=== PATIENT | male | born 1940 | race Caucasian/White ===

== ENCOUNTER → 2018-07-08 08:18 | Outpatient (CLI) | payer MEDICARE, OTHER, SELFPAY ==
[2018-07-08 10:07] LABS: Add Manual Diff / Slide Review NO; Basophils Percent Auto 0.5 % (0-2); Hematocrit 42.3 % (41-53); Hemoglobin 14.6 g/dL (13.5-17.5); Mean Corpuscular HGB Conc 34.5 % (30-36); Mean Corpuscular Hemoglobin 32.9 PG (26-34); Mean Corpuscular Volume 95.2 fL (80-100); Monocytes Percent Auto 9.5 % (3-14); Neutrophils Absolute Auto 2800 /uL (1500-7000); Platelet Count 299 X10^3/uL (150-400); Red Blood Cell Count 4.45 X10^6/uL (4.5-5.9); White Blood Cell Count 8.3 X10^3/uL (4.5-11.0)
[2018-07-08 10:10] LABS: Alanine Aminotransferase 30 IU/L (21-72); Albumin 4.5 g/dL (3.5-5.0); Albumin Globulin Ratio 1.3 (1.0-2.8); Alkaline Phosphatase 54 U/L (38-126); Aspartate Aminotransferase 35 IU/L (17-59); Bilirubin Total 0.4 mg/dL (0.2-1.3); Blood Urea Nitrogen 20 mg/dL (9-20); Calcium 9.4 mg/dL (8.4-10.2); Carbon Dioxide 26 mmol/L (22-32); Chloride 104 mmol/L (98-107); Cholesterol 147 mg/dL (140-199); Estimated Glomerular Filt Rate > 60.0 mL/min (>60); Globulin 3.5 g/dL (1.7-4.1); Glucose 99 mg/dL (80-110); HDL Cholesterol 42 mg/dL (40-60); HEMOLYSIS < 15 (0-50); LDL Cholesterol Calculated 90 mg/dL (<100); Lipase 99 U/L (23-300); Potassium 4.3 mmol/L (3.4-5.1); Sodium 142 mmol/L (137-145); Triglycerides 77 mg/dL (35-150)
[2018-07-08 10:38] LABS: TSH w/ Reflex to FT4 2.03 uIU/mL (0.47-4.68)
== END ==
PROVIDERS: PCP Internal Medicine; Visit Provider Internal Medicine
DX: E78.2 Mixed hyperlipidemia (principal); I10 Essential (primary) hypertension; I25.10 Atherosclerotic heart disease of native coronary artery without angina pectoris
CPT/HCPCS: 36415; 80053; 80061; 83690; 84443; 85025

== ENCOUNTER → 2018-12-03 09:50 | Outpatient (CLI) | payer MEDICARE, OTHER, SELFPAY | PROVIDERS: PCP Internal Medicine; Visit Provider Nurse Practitioner | DX: T14.8XXA Other injury of unspecified body region, initial encounter (principal); B00.1 Herpesviral vesicular dermatitis | CPT/HCPCS: 87070; 87205 ==

== ENCOUNTER 2019-07-31 21:18 | Emergency (ER) | payer MEDICARE, OTHER, SELFPAY ==
[2019-07-31] VITALS (19 sets, daily range): BP systolic 75–188; BP diastolic 37–86; PULSE 65–86; RESP 14–25; TEMP 36.4; O2SAT 93–99; BMI 24.4
--- NOTE | 2019-07-31 21:29 | DI.RAD.S_ITS ---
PROCEDURE: XR CHEST 1V INDICATIONS: chest pain TECHNIQUE: One view of the chest was acquired. COMPARISON: [facility], , CHEST 1 VIEW, 08/05/2011, 0:51. FINDINGS: Surgical changes and devices: Median sternotomy. Lungs and pleura: Lungs are clear. No pleural effusions or pneumothorax. Mediastinum: Moderate hiatal hernia. Mediastinal contours otherwise appear normal. Heart size is normal. Bones and chest wall: No suspicious bony lesions. Overlying soft tissues appear unremarkable. IMPRESSION: 1. No acute process. 2. Hiatal hernia. Dictated by: Gabo Madrigal M.D. on 08/01/2019 at 7:22 Approved by: Gabo Madrigal M.D. on 08/01/2019 at 7:23
[2019-07-31] MEDS: NITROGLYCERIN 0.4 MG SL TAB SL ×3 (21:36→21:49)
[2019-07-31 21:45] LABS: PTT Partial Thromboplastin Tim 33 SECONDS (26.4-36.2)
[2019-07-31] MEDS: SODIUM CHLORIDE 0.9% 1,000 ML 150 ML IV (21:46)
[2019-07-31 21:47] LABS: Add Manual Diff / Slide Review NO; Alanine Aminotransferase 27 IU/L (<50); Albumin 4.9 g/dL (3.5-5.0); Albumin Globulin Ratio 1.3 (1.0-2.8); Alkaline Phosphatase 53 U/L (38-126); Aspartate Aminotransferase 39 IU/L (17-59); Basophils Absolute Auto 100 /uL (0-100); Basophils Percent Auto 0.4 % (0-2); Bilirubin Total 0.4 mg/dL (0.2-1.3); Blood Urea Nitrogen 21 mg/dL (9-20); Calcium 9.8 mg/dL (8.4-10.2); Carbon Dioxide 28 mmol/L (22-32); Chloride 101 mmol/L (98-107); Creatine Kinase 175 U/L (55-170); Eosinophils Absolute Auto 600 /uL (0-450); Estimated Glomerular Filt Rate 44.9 mL/min (>60); Globulin 3.7 g/dL (1.7-4.1); Glucose 119 mg/dL (80-110); HEMOLYSIS < 15 (0-50); Hematocrit 43.4 % (41-53); Lipase 142 U/L (23-300); Lymphocytes Absolute Auto 5800 /uL (1100-4500); Lymphocytes Percent Auto 45.9 % (25-40); Mean Corpuscular HGB Conc 34.6 % (30-36); Mean Corpuscular Hemoglobin 33.1 PG (26-34); Mean Corpuscular Volume 95.6 fL (80-100); Monocytes Absolute Auto 1400 /uL (0-900); Monocytes Percent Auto 10.7 % (3-14); Neutrophils Absolute Auto 4800 /uL (1500-7000); Platelet Count 293 X10^3/uL (150-400); Potassium 4.1 mmol/L (3.4-5.1); Red Blood Cell Count 4.54 X10^6/uL (4.5-5.9); Sodium 139 mmol/L (137-145); Total Protein 8.6 g/dL (6.3-8.2); White Blood Cell Count 12.7 X10^3/uL (4.5-11.0)
[2019-07-31 21:50] LABS: Prothrombin Time 12.1 SECONDS (10.1-12.7)
[2019-07-31 21:58] LABS: Troponin I < 0.012 ng/mL (0.01-0.034)
[2019-07-31 22:02] LABS: CKMB % Relative Index 2.2 % (1.5-5.0); Creatine Kinase MB 3.85 ng/mL (<2.37)
--- NOTE | 2019-07-31 22:05 | ED.CHESTPAIN ---
HPI - Chest Pain General Chief Complaint: Chest Pain Stated Complaint: Chest pain Time Seen by Provider: 07/31/19 21:31 Source: patient Mode of arrival: Ambulatory Limitations: no limitations History of Present Illness HPI narrative: 79-year-old gentleman with history of a 5 vessel CABG in 2003 presents with central chest pain that started approximately 730 after eating dinner today. With this central chest pain described as 4/10 and tight without radiation, he was initially mildly diaphoretic and dyspneic, he describes no nausea. Compounding the central chest pain that started at 7:30 this evening, is left shoulder pain with a slightly swollen and very tender left bursa that has been at problem for him for approximately a week and a half. He saw his primary care physician for this a couple of days ago who felt it was musculoskeletal and asked to return if it wasn't improving in a few days. The patient is very clear that there are 2 distinct types of chest pain the left shoulder musculoskeletal pain does radiate down into the left side of the chest wall but all of that pain is significantly different than the central chest pain that started after dinner today. Related Data Home Medications Medication Instructions Recorded Confirmed aspirin 325 mg PO QDAY #0 13 08/01/19 Previous Rx's Medication Instructions Recorded lisinopril 20 mg tablet 20 mg PO Q DAY #90 tabs 08/27/18 simvastatin 80 mg tablet 80 mg PO Q DAY #90 tabs 08/27/18 Allergies Allergy/AdvReac Type Severity Reaction Status Date / Time atorvastatin Allergy Mild MUSCLE Verified 07/30/19 11:07 WEAKNESS EXTREMITIES ezetimibe Allergy Mild MUSCLE Verified 07/30/19 11:07 ACHES procaine Allergy Mild SICK Verified 07/30/19 11:07 rosuvastatin Allergy Mild MUSLCE Verified 07/30/19 11:07 WEAKNESS IN EXTREMITIES Review of Systems Review of Systems Narrative: Denies ? fever ? cough ? cold ? chills ? chest pain ? dyspnea ? orthopnea ? wheezing ? abdominal pain ? change to bowel or bladder habits ? nausea vomiting ? skin changes ? rashes Patient History Medical History (Updated 08/01/19 @ 00:22 by Suly Alejo MD) Cataracts, bilateral (Resolved ~2010) Chicken pox (Resolved) Coronary artery disease (Chronic ~2003) Depression (Chronic ~2003) Essential hypertension (Chronic) Hearing deficit (Chronic) Measles (Resolved) Mixed hyperlipidemia (Chronic) Mumps (Resolved) Scarlet fever (Resolved) TGA (transient global amnesia) (Inactive ~2001) Transient ischemic attack (TIA) (Resolved ~07/2009) Vision disorder (Chronic) Surgical History Anesthesia (Resolved) History of cataract removal with insertion of prosthetic lens (~2010) Status post coronary artery bypass graft (~2003) Social History marital status: number of children: 5 household members: spouse lives independently: Yes caregiver/support person: No housing: house pets and animals: No education level: high school occupational status: other (Retired) Previous occupational history: [employer] e[employer]en/rastafarian: Spiritism travel history: other ([place], [place], [place]) leisure activities: reading and other (RV camping, coffee and eating doughnuts.) Smoking Status: Never smoker Tobacco: How many years used: 0 quit status: quit date established (Never Started) second hand exposure: Yes (In the past.) alcohol intake: never substance use type: does not use Smoking Status: Never smoker alcohol intake frequency: 0-2 drinks per day Substance Use Type: does not use Exam Narrative Exam Narrative: General: Pale, moderate distress distress. Able to give a complete and coherent history. Well-nourished well-developed HEENT: Moist mucous membranes, normal sclera with reactive pupils, Neck: No JVD, supple Respiratory: Lungs are clear to auscultation, no wheezing no rales no rhonchi. Full and symmetrical air movement Cardiac: Regular rate and rhythm no murmurs no bruits Abdomen: Soft nontender good bowel tones, no flank pain Skin: Warm and dry, no rashes Neurologic: Grossly neurologically intact with no obvious asymmetries or abnormalities Extremities: No trauma, well perfused. Left shoulder with fullness around the anterior deltoid bursa. He does have tenderness with active and passive range of motion at the shoulder that radiates down into his arm and into the left chest wall. This pain is not the same as the central chest pain for which he is presenting. There is no redness or warmth to the bursa Psych: Cooperative, appropriate insight and affect Initial Vital Signs Initial Vital Signs: Vital Signs Temperature 97.5 F L 07/31/19 21:26 Pulse Rate 75 07/31/19 21:26 Respiratory Rate 20 07/31/19 21:26 Blood Pressure 188/86 H 07/31/19 21: Pulse Oximetry 99 07/31/19 21:26 Course Course Course Narrative: 23:08: Presented with central chest pain that developed at around 7:30 a.m. this evening after eating dinner associated with mild nausea and diaphoresis. Began to radiate down his arm and exacerbate the pain that he is also experiencing in his left shoulder that clearly seems to be musculoskeletal. With 3 sublingual nitro his central chest pain had completely resolved and his left shoulder pain was down to what he felt the level of pain he has been having over the last week or 2 with this shoulder. Initial EKGs do not show ST elevation. Initial troponin is negative. Half an inch of nitropaste is placed and a cardiac heparin drip is started. At 2300 he is noticing that his central chest pain is clearly increasing/returning. Will change to a nitroglycerin drip and recheck another EKG. Repeat troponin will be drawn 23:45 Begining to look for beds. Call to [facility], waiting for return. Pain continues at 4/10, nitro gtt increasing. Morphine for pain control. Fluid bolus. Page to cardiology 00:[address] Cadena, he agrees that transfer to [facility] would be most appropriate 12:07 additional IV lines have been started pressure continues to fall is at 75/46 currently 1st L of fluid boluses continuing. Nitro drip has been discontinued. 12:15 blood pressure is Responding to fluids. Alert and appropriate. Nitro drip is currently completely discontinued and he states that this central chest pain is 1 to 2/10. Discussion with Dr. Nga Lares, hospitalist at [facility]. Except the patient to the ICU. Will arrange ALS transport. At this time initial troponin and repeat 2 hours later as well as 1st 3 EKGs still are not showing significant abnormalities. Orders Ordered: ED Orders 07/31/19 21:29 XR chest 1V Stat Complete Blood Count AUTO DIFF Stat Comprehensive Metabolic Panel Stat Lipase Stat Partial Thromboplastin Time Stat Prothrombin Time INR Stat Troponin & CK Cardiac Panel Stat 07/31/19 21:31 EKG-12 Lead Stat 07/31/19 21:46 EKG-12 Lead Routine 07/31/19 23:09 EKG-12 Lead Stat 07/31/19 23:30 Troponin I Stat Discontinued Medications Clopidogrel Bisulfate (Plavix) 300 mg PO NOW ONE Stop: 08/01/19 00:00 Last Admin: 08/01/19 00:33 Dose: 300 mg Documented by: PATIENCE Heparin Sodium (Porcine) (Heparin) 5,000 unit IV NOW ONE Stop: 07/31/19 22:49 Last Admin: 07/31/19 22:59 Dose: 5,000 unit Documented by: PATIENCE Sodium Chloride (Normal Saline 0.9%) 1,000 mls @ 150 mls/hr IV CONT LAURA Last Infusion: 08/01/19 01:14 Dose: 0 mls/hr Documented by: Infusion: 08/01/19 00:16 Dose: 999 mls/hr Documented by: Admin: 07/31/19 21:46 Dose: 150 mls/hr Documented by: PATIENCE Heparin Sodium/Dextrose (Heparin Drip) 25,000 unit in 500 mls @ 19.595 mls/hr IV CONT LAURA; Protocol Last Titration: 08/01/19 01:15 Dose: 12 units/kg/hr, 19.595 mls/hr Documented by: Admin: 07/31/19 23:00 Dose: 12 units/kg/hr, 19.595 mls/hr Documented by: PATIENCE Nitroglycerin (Nitroglycerin) 50 mg in 250 mls @ 1.5 mls/hr IV TITRATE LAURA; Protocol Last Titration: 08/01/19 00:02 Dose: 0 mcg/min, 0 mls/hr Documented by: Titration: 08/01/19 00:01 Dose: 5 mcg/min, 1.5 mls/hr Documented by: Titration: 07/31/19 23:58 Dose: 10 mcg/min, 3 mls/hr Documented by: Titration: 07/31/19 23:42 Dose: 15 mcg/min, 4.5 mls/hr Documented by: Titration: 07/31/19 23:33 Dose: 10 mcg/min, 3 mls/hr Documented by: Titration: 07/31/19 23:28 Dose: 50 mcg/min, 15 mls/hr Documented by: Titration: 07/31/19 23:21 Dose: 10 mcg/min, 3 mls/hr Documented by: Admin: 07/31/19 23:18 Dose: 5 mcg/min, 1.5 mls/hr Documented by: PATIENCE Sodium Chloride (Normal Saline 0.9%) 1,000 mls @ 1,000 mls/hr IV BOLUS ONE Stop: 08/01/19 01:20 Last Infusion: 08/01/19 01:15 Dose: 150 mls/hr Documented by: Admin: 08/01/19 00:00 Dose: 150 mls/hr Documented by: PATIENCE Metoprolol Tartrate (Lopressor) 5 mg IV Q5M LAURA Stop: 07/31/19 21:56 Last Admin: 07/31/19 21:58 Dose: Not Given Documented by: Admin: 07/31/19 21:58 Dose: Not Given Documented by: Admin: 07/31/19 21:58 Dose: Not Given Documented by: PATIENCE Morphine Sulfate (Morphine) 2 mg IV Q5MIN PRN PRN Reason: Chest Pain Last Admin: 07/31/19 23:48 Dose: 2 mg Documented by: PATIENCE Nitroglycerin (Nitrostat) 0.4 mg SL [id number] PRN PRN Reason: Chest Pain Last Admin: 07/31/19 21:49 Dose: 0.4 mg Documented by: Admin: 07/31/19 21:43 Dose: 0.4 mg Documented by: PATIENCE Nitroglycerin (Nitro-Bid) 0.5 inch TOP NOW ONE Stop: 07/31/19 22:07 Last Admin: 07/31/19 22:24 Dose: 0.5 inch Documented by: PATIENCE Vital Signs Vital signs: Vital Signs - 8 hr 07/31/19 22:24 07/31/19 22:58 07/31/19 23:05 Pulse Rate 73 69 70 Respiratory Rate 19 14 Blood Pressure 112/63 Blood Pressure [Left Arm] 109/55 L 108/58 L Pulse Oximetry 96 96 07/31/19 23:10 07/31/19 23:15 07/31/19 23:20 Pulse Rate 68 65 73 Respiratory Rate 21 18 17 Blood Pressure Blood Pressure [Left Arm] 116/58 L 121/61 122/72 Pulse Oximetry 96 96 97 07/31/19 23:25 07/31/19 23:30 07/31/19 23:35 Pulse Rate 72 75 80 Respiratory Rate 14 21 20 Blood Pressure Blood Pressure [Left Arm] 104/56 L 93/50 L 93/53 L Pulse Oximetry 95 95 95 07/31/19 23:39 07/31/19 23:40 07/31/19 23:50 Pulse Rate 80 75 76 Respiratory Rate 17 19 24 Blood Pressure Blood Pressure [Left Arm] 97/56 L 101/58 L 105/57 L Pulse Oximetry 95 93 94 07/31/19 23:55 07/31/19 23:58 08/01/19 00:03 Pulse Rate 75 74 63 Respiratory Rate 17 15 15 Blood Pressure Blood Pressure [Left Arm] 85/46 L 75/37 L 75/41 L Pulse Oximetry 95 96 95 08/01/19 00:10 08/01/19 00:12 08/01/19 00:15 Pulse Rate 62 60 69 Respiratory Rate 14 14 21 Blood Pressure Blood Pressure [Left Arm] 88/53 L 87/51 L 91/54 L Pulse Oximetry 94 96 96 08/01/19 00:17 08/01/19 00:20 08/01/19 00:25 Pulse Rate 66 69 69 Respiratory Rate 17 23 14 Blood Pressure Blood Pressure [Left Arm] 88/52 L 92/51 L 98/53 L Pulse Oximetry 94 96 96 08/01/19 00:27 08/01/19 00:32 08/01/19 00:34 Pulse Rate 68 70 72 Respiratory Rate 12 17 13 Blood Pressure Blood Pressure [Left Arm] 100/57 L 98/55 L 108/55 L Pulse Oximetry 94 95 96 08/01/19 00:37 08/01/19 00:40 08/01/19 00:43 Pulse Rate 74 77 75 Respiratory Rate 20 23 20 Blood Pressure Blood Pressure [Left Arm] 107/56 L 106/58 L 110/61 Pulse Oximetry 97 96 96 08/01/19 00:45 08/01/19 00:47 08/01/19 00:49 Pulse Rate 73 75 74 Respiratory Rate 24 24 18 Blood Pressure Blood Pressure [Left Arm] 109/58 L 115/57 L 115/56 L Pulse Oximetry 97 97 97 08/01/19 00:52 08/01/19 00:53 08/01/19 00:55 Pulse Rate 72 74 73 Respiratory Rate 21 18 14 Blood Pressure Blood Pressure [Left Arm] 107/55 L 116/57 L 104/50 L Pulse Oximetry 97 97 96 08/01/19 00:58 Pulse Rate 73 Respiratory Rate 16 Blood Pressure Blood Pressure [Left Arm] 106/55 L Pulse Oximetry 96 MDM - Chest Pain Medical Records Data Attestation: I reviewed the patient's medical records. Lab Data Attestation: I reviewed the patient's lab results. Result diagrams: 07/31/19 21:29 07/31/19 21:29 Labs: Lab Results 07/31/19 07/31/19 07/31/19 Range/Units 21:29 21:29 21:29 WBC 12.7 H (4.5-11.0) X10^3/uL RBC 4.54 (4.5-5.9) X10^6/uL Hgb 15.0 (13.5-17.5) g/dL Hct 43.4 (41-53) % MCV 95.6 (80-100) fL MCH 33.1 (26-34) PG MCHC 34.6 (30-36) % RDW 13.0 (11.6-14.8) % Plt Count 293 (150-400) X10^3/uL Neut % (Auto) 38.0 L (50-75) % Lymph % (Auto) 45.9 H (25-40) % Rich % (Auto) 10.7 (3-14) % Eos % (Auto) 5.0 H (2-4) % Baso % (Auto) 0.4 (0-2) % Neut # (Auto) 4800 (6077-5084) /uL Lymph # (Auto) 5800 H (3514-7423) /uL Rich # (Auto) 1400 H (0-900) /uL Eos # (Auto) 600 H (0-450) /uL Baso # (Auto) 100 (0-100) /uL PT 12.1 (10.1-12.7) SECONDS INR 1.0 (0.9-1.3) APTT 33 (26.4-36.2) SECONDS Sodium 139 (137-145) mmol/L Potassium 4.1 (3.4-5.1) mmol/L Chloride 101 (98-107) mmol/L Carbon Dioxide 28 (22-32) mmol/L BUN 21 H (9-20) mg/dL Creatinine 1.50 H (0.66-1.25) mg/dL Estimated GFR 44.9 L (>60) mL/min BUN/Creatinine Ratio 14.0 (6-22) Glucose 119 H (80-110) mg/dL Calcium 9.8 (8.4-10.2) mg/dL Total Bilirubin 0.4 (0.2-1.3) mg/dL AST 39 (17-59) IU/L ALT 27 (<50) IU/L Alkaline Phosphatase 53 (38-126) U/L Total Creatine Kinase 175 H (55-170) U/L CK-MB (CK-2) 3.85 H (<2.37) ng/mL CK-MB (CK-2) Rel Index 2.2 (1.5-5.0) % Troponin I < 0.012 (0.01-0.034) ng/mL Total Protein 8.6 H (6.3-8.2) g/dL Albumin 4.9 (3.5-5.0) g/dL Globulin 3.7 (1.7-4.1) g/dL Albumin/Globulin Ratio 1.3 (1.0-2.8) Lipase 142 (23-300) U/L 07/31/19 Range/Units 23:30 WBC (4.5-11.0) X10^3/uL RBC (4.5-5.9) X10^6/uL Hgb (13.5-17.5) g/dL Hct (41-53) % MCV (80-100) fL MCH (26-34) PG MCHC (30-36) % RDW (11.6-14.8) % Plt Count (150-400) X10^3/uL Neut % (Auto) (50-75) % Lymph % (Auto) (25-40) % Rich % (Auto) (3-14) % Eos % (Auto) (2-4) % Baso % (Auto) (0-2) % Neut # (Auto) (2454-9103) /uL Lymph # (Auto) (1351-1405) /uL Rich # (Auto) (0-900) /uL Eos # (Auto) (0-450) /uL Baso # (Auto) (0-100) /uL PT (10.1-12.7) SECONDS INR (0.9-1.3) APTT (26.4-36.2) SECONDS Sodium (137-145) mmol/L Potassium (3.4-5.1) mmol/L Chloride (98-107) mmol/L Carbon Dioxide (22-32) mmol/L BUN (9-20) mg/dL Creatinine (0.66-1.25) mg/dL Estimated GFR (>60) mL/min BUN/Creatinine Ratio (6-22) Glucose (80-110) mg/dL Calcium (8.4-10.2) mg/dL Total Bilirubin (0.2-1.3) mg/dL AST (17-59) IU/L ALT (<50) IU/L Alkaline Phosphatase (38-126) U/L Total Creatine Kinase (55-170) U/L CK-MB (CK-2) (<2.37) ng/mL CK-MB (CK-2) Rel Index (1.5-5.0) % Troponin I < 0.012 (0.01-0.034) ng/mL Total Protein (6.3-8.2) g/dL Albumin (3.5-5.0) g/dL Globulin (1.7-4.1) g/dL Albumin/Globulin Ratio (1.0-2.8) Lipase (23-300) U/L ECG Data Attestation: I personally reviewed and interpreted this ECG as follows: Interpretation: EKG 1 21:31 Sinus rhythm with foot rate of 75 Left axis deviation with an axis at -[address] depression in the for 5 and 6, no ST elevation EKG 2. At 9:46 p.m. Sinus rhythm at a rate of 89 Slight axis change to -18 ST depression laterally improved after nitrates No ST elevation EKG 3. 23:09 Sinus rhythm at a rate of [address] T-wave changes at this time. Normal axis Critical Care Time Critical Care Time Critical Care Time: Yes Total Critical Care Time: 41 Attestation: Critical care time is separate from other billable procedures. This critical care time includes consultation with family and other consulting doctors, review of records, and interpretation of data from labs, EKGs and imaging as well as managements of ongoing chest pain with hypotension Discharge Plan Departure Patient Disposition: [facility] Clinical Impression: ACS (acute coronary syndrome), Bursitis of left shoulder Discharge Date/Time: 08/01/19 01:15 Prescriptions: No Action aspirin 325 MG tablet 325 mg PO QDAY Qty: 0 RF: 0 simvastatin [Zocor] 80 mg tablet 80 mg PO Q DAY Qty: 90 RF: 3 lisinopril [Prinivil] 20 mg tablet 20 mg PO Q DAY Qty: 90 RF: 3 Referrals: Santos Aguilar MD [Primary Care Provider] -
[2019-07-31] MEDS: NITROGLYCERIN OINT 1 INCH/GM OINT...G. 0.5 INCH TOP (22:24)
[2019-07-31] MEDS: HEPARIN 5,000 UNIT/ML VIAL 5000 UNIT IV (22:59)
[2019-07-31] MEDS: HEPARIN DRIP 25,000 UNIT/500 ML IV.SOLN 19.595 UNIT IV (23:00)
[2019-07-31] MEDS: NITROGLYCERIN 50 MG/250 ML INFUS..BTL IV (23:18)
--- NOTE | 2019-07-31 23:47 | PC.NURSE ---
Pt reported severe left chest pain 8/10 as nitro gtt was being initiated. Pain decreased to 4/10 as nitro gtt took effect and SBP decresed to 90's. Dr Alejo notified, orders received for morphine. May also give 500ml NS bolus to keep SBP >90.
[2019-07-31] MEDS: MORPHINE 2 MG/ML INJ IV (23:48)
[2019-07-31 23:58] LABS: Troponin I < 0.012 ng/mL (0.01-0.034)
[2019-08-01] VITALS (20 sets, daily range): BP systolic 75–116; BP diastolic 41–61; PULSE 60–77; RESP 12–24; O2SAT 94–97
[2019-08-01] MEDS: SODIUM CHLORIDE 0.9% 1,000 ML 150 ML IV
[2019-08-01] MEDS: CLOPIDOGREL 75 MG TABLET 300 MG PO (00:33)
== END 2019-08-01 01:15 | disposition short-term general hospital (02) ==
PROVIDERS: Emergency Provider Emergency Medicine; PCP Internal Medicine
DX: I24.9 Acute ischemic heart disease, unspecified (principal); M75.52 Bursitis of left shoulder; R07.9 Chest pain, unspecified
CPT/HCPCS: 36415; 71045; 80053; 82550; 82553; 83690; 84484; 85025; 85610; 85730; 93005; 93010; 96361; 96365; 96366; 96368; 96375; 99285; 99291; 99292; J1644; J2270

== ENCOUNTER → 2019-08-05 07:16 | Outpatient (CLI) | payer MEDICARE, OTHER, SELFPAY ==
[2019-08-05 08:38] LABS: Alanine Aminotransferase 52 IU/L (<50); Albumin 4.5 g/dL (3.5-5.0); Albumin Globulin Ratio 1.5 (1.0-2.8); Alkaline Phosphatase 49 U/L (38-126); Aspartate Aminotransferase 58 IU/L (17-59); Bilirubin Total 0.5 mg/dL (0.2-1.3); Blood Urea Nitrogen 21 mg/dL (9-20); Calcium 9.7 mg/dL (8.4-10.2); Carbon Dioxide 27 mmol/L (22-32); Chloride 104 mmol/L (98-107); Cholesterol 144 mg/dL (140-199); Estimated Glomerular Filt Rate > 60.0 mL/min (>60); Globulin 3.1 g/dL (1.7-4.1); Glucose 105 mg/dL (80-110); HDL Cholesterol 41 mg/dL (40-60); HEMOLYSIS < 15 (0-50); LDL Cholesterol Calculated 85 mg/dL (<100); Potassium 4.9 mmol/L (3.4-5.1); Sodium 141 mmol/L (137-145); Total Protein 7.6 g/dL (6.3-8.2); Triglycerides 92 mg/dL (35-150)
[2019-08-05 09:08] LABS: Thyroid Stimulating Hormone 2.72 uIU/mL (0.47-4.68)
== END ==
PROVIDERS: PCP Internal Medicine; Referring Provider Internal Medicine Cardiovascular Disease; Visit Provider Internal Medicine Cardiovascular Disease
DX: E78.2 Mixed hyperlipidemia (principal); I10 Essential (primary) hypertension; I25.10 Atherosclerotic heart disease of native coronary artery without angina pectoris; E78.5 Hyperlipidemia, unspecified
CPT/HCPCS: 36415; 80053; 80061; 84443

== ENCOUNTER → 2020-08-02 07:02 | Outpatient (CLI) | payer MEDICARE, OTHER, SELFPAY ==
[2020-08-02 09:45] LABS: Cholesterol 149 mg/dL (140-199); HDL Cholesterol 36 mg/dL (40-60); LDL Cholesterol Calculated 93 mg/dL (<100); Triglycerides 101 mg/dL (35-150)
== END ==
PROVIDERS: PCP Internal Medicine; Referring Provider Internal Medicine Cardiovascular Disease; Visit Provider Internal Medicine Cardiovascular Disease
DX: E78.5 Hyperlipidemia, unspecified (principal)
CPT/HCPCS: 36415; 80061

== ENCOUNTER → 2020-09-08 13:03 | Outpatient (CLI) | payer MEDICARE, OTHER, SELFPAY ==
[2020-09-08] MEDS: COVID-19 VACC, Ad26(JANSSEN)/PF 0.5 ML IM (13:15)
== END ==
PROVIDERS: PCP Internal Medicine; Visit Provider Internal Medicine
DX: Z23 Encounter for immunization (principal)
CPT/HCPCS: 0031A; 91303

== ENCOUNTER → 2021-05-26 12:52 | Outpatient (CLI) | payer MEDICARE, OTHER, SELFPAY ==
[2021-05-26 13:16] LABS: COVID19 -Nasal RAPID POSITIVE (Negative)
== END ==
PROVIDERS: PCP Internal Medicine; Visit Provider Physician Assistant
DX: Z20.822 Contact with and (suspected) exposure to COVID-19 (principal)
CPT/HCPCS: 87635

== ENCOUNTER → 2021-08-22 07:25 | Outpatient (CLI) | payer MEDICARE, OTHER, SELFPAY ==
[2021-08-22 09:02] LABS: Alanine Aminotransferase 26 IU/L (<50); Albumin 4.6 g/dL (3.5-5.0); Albumin Globulin Ratio 1.4 (1.0-2.8); Alkaline Phosphatase 45 U/L (38-126); Aspartate Aminotransferase 37 IU/L (17-59); Bilirubin Total 0.7 mg/dL (0.2-1.3); Blood Urea Nitrogen 21 mg/dL (9-20); Calcium 9.5 mg/dL (8.4-10.2); Carbon Dioxide 30 mmol/L (22-32); Chloride 105 mmol/L (98-107); Cholesterol 159 mg/dL (140-199); Estimated Glomerular Filt Rate > 60.0 mL/min (>60); Globulin 3.3 g/dL (1.7-4.1); Glucose 111 mg/dL (80-110); HDL Cholesterol 35 mg/dL (40-60); HEMOLYSIS < 15 (0-50); LDL Cholesterol Calculated 104 mg/dL (<100); Potassium 4.7 mmol/L (3.4-5.1); Sodium 141 mmol/L (137-145); Total Protein 7.9 g/dL (6.3-8.2); Triglycerides 102 mg/dL (35-150)
== END ==
PROVIDERS: PCP Internal Medicine; Referring Provider Internal Medicine; Visit Provider Internal Medicine
DX: E78.2 Mixed hyperlipidemia (principal); I10 Essential (primary) hypertension; I25.10 Atherosclerotic heart disease of native coronary artery without angina pectoris
CPT/HCPCS: 36415; 80053; 80061

== ENCOUNTER → 2021-09-20 07:01 | Outpatient (CLI) | payer MEDICARE, OTHER, SELFPAY ==
[2021-09-20 08:03] LABS: Cholesterol 161 mg/dL (140-199); HDL Cholesterol 36 mg/dL (40-60); LDL Cholesterol Calculated 107 mg/dL (<100); Triglycerides 89 mg/dL (35-150)
== END ==
PROVIDERS: PCP Internal Medicine; Referring Provider Internal Medicine Cardiovascular Disease; Visit Provider Internal Medicine Cardiovascular Disease
DX: E78.5 Hyperlipidemia, unspecified (principal)
CPT/HCPCS: 36415; 80061

== ENCOUNTER → 2022-03-26 07:13 | Outpatient (CLI) | payer MEDICARE, OTHER, SELFPAY ==
[2022-03-26 08:29] LABS: Cholesterol 112 mg/dL (140-199); HDL Cholesterol 35 mg/dL (40-60); LDL Cholesterol Calculated 62 mg/dL (<100); Triglycerides 77 mg/dL (35-150)
== END ==
PROVIDERS: PCP Internal Medicine; Referring Provider Internal Medicine Cardiovascular Disease; Visit Provider Internal Medicine Cardiovascular Disease
DX: I10 Essential (primary) hypertension (principal); R94.39 Abnormal result of other cardiovascular function study; Z95.1 Presence of aortocoronary bypass graft; E78.5 Hyperlipidemia, unspecified
CPT/HCPCS: 36415; 80061

== ENCOUNTER → 2022-11-26 06:44 | Outpatient (CLI) | payer MEDICARE, OTHER, SELFPAY ==
[2022-11-26 09:18] LABS: Alanine Aminotransferase 30 IU/L (<50); Albumin 4.1 g/dL (3.5-5.0); Albumin Globulin Ratio 1.5 (1.0-2.8); Alkaline Phosphatase 46 U/L (38-126); Aspartate Aminotransferase 33 IU/L (17-59); BUN Creatinine Ratio 18.9 (6-22); Bilirubin Total 0.4 mg/dL (0.2-1.3); Blood Urea Nitrogen 18 mg/dL (9-20); Calcium 9.3 mg/dL (8.4-10.2); Carbon Dioxide 29 mmol/L (22-32); Chloride 103 mmol/L (98-107); Cholesterol 113 mg/dL (140-199); Estimated Glomerular Filt Rate > 60 mL/min (>60); Globulin 2.7 g/dL (1.7-4.1); Glucose 110 mg/dL (80-110); HDL Cholesterol 38 mg/dL (40-60); HEMOLYSIS < 15 (0-50); LDL Cholesterol Calculated 62 mg/dL (<100); Potassium 4.5 mmol/L (3.4-5.1); Sodium 138 mmol/L (137-145); Total Protein 6.8 g/dL (6.3-8.2); Triglycerides 67 mg/dL (35-150)
== END ==
PROVIDERS: PCP Internal Medicine; Referring Provider Internal Medicine; Visit Provider Internal Medicine
DX: E78.2 Mixed hyperlipidemia (principal); I10 Essential (primary) hypertension; I25.10 Atherosclerotic heart disease of native coronary artery without angina pectoris
CPT/HCPCS: 36415; 80053; 80061

== ENCOUNTER → 2023-06-26 10:25 | Outpatient (CLI) | payer MEDICARE, OTHER, SELFPAY ==
[2023-06-26 10:59] LABS: Add Manual Diff / Slide Review NO; Basophils Absolute Auto 0 /uL (0-100); Basophils Percent Auto 0.5 % (0-2); Eosinophils Absolute Auto 600 /uL (0-450); Eosinophils Percent Auto 5.8 % (2-4); Hematocrit 37.6 % (41-53); Hemoglobin 13.2 g/dL (13.5-17.5); Lymphocytes Absolute Auto 3300 /uL (1100-4500); Lymphocytes Percent Auto 33.4 % (25-40); Mean Corpuscular HGB Conc 35.1 % (30-36); Mean Corpuscular Hemoglobin 33.5 PG (26-34); Mean Corpuscular Volume 95.5 fL (80-100); Monocytes Absolute Auto 1000 /uL (0-900); Monocytes Percent Auto 9.9 % (3-14); Neutrophils Absolute Auto 5000 /uL (1500-7000); Neutrophils Percent Auto 50.4 % (50-75); Platelet Count 259 X10^3/uL (150-400); Red Blood Cell Count 3.94 X10^6/uL (4.5-5.9); Red Cell Distribution Width 13.2 % (11.6-14.8)
[2023-06-26 11:30] LABS: Alanine Aminotransferase 29 IU/L (<50); Albumin 4.2 g/dL (3.5-5.0); Albumin Globulin Ratio 1.4 (1.0-2.8); Alkaline Phosphatase 50 U/L (38-126); Aspartate Aminotransferase 38 IU/L (17-59); BUN Creatinine Ratio 30.6 (6-22); Bilirubin Total 0.6 mg/dL (0.2-1.3); Blood Urea Nitrogen 30 mg/dL (9-20); Calcium 9.7 mg/dL (8.4-10.2); Carbon Dioxide 26 mmol/L (22-32); Chloride 105 mmol/L (98-107); Estimated Glomerular Filt Rate > 60 mL/min (>60); Glucose 99 mg/dL (80-110); HEMOLYSIS < 15 (0-50); Magnesium 2.1 mg/dL (1.6-2.3); Potassium 4.8 mmol/L (3.4-5.1); Sodium 137 mmol/L (137-145); Total Protein 7.2 g/dL (6.3-8.2)
[2023-06-26 11:54] LABS: Thyroid Stimulating Hormone 1.85 uIU/mL (0.47-4.68)
== END ==
PROVIDERS: PCP Internal Medicine; Referring Provider Internal Medicine Cardiovascular Disease; Visit Provider Internal Medicine Cardiovascular Disease
DX: I49.3 Ventricular premature depolarization (principal); I10 Essential (primary) hypertension
CPT/HCPCS: 36415; 80053; 83735; 84443; 85025

== ENCOUNTER → 2023-08-28 09:07 | Outpatient (CLI) | payer OTHER, SELFPAY ==
--- NOTE | 2023-08-28 09:10 | DI.NM.S_ITS ---
PROCEDURE: NM RONALDO PERF SPECT REST & STR Rest and exercise myocardial perfusion SPECT with gated imaging and ejection fraction RADIOPHARMACEUTICAL: 12.3 mCi Tc-99m sestamibi IV at rest and 24.5 mCi Tc-99m sestamibi IV at peak exercise. A [id number] was performed. INDICATIONS: ABNORMAL MPS / PVC /MITRAL VALVE REGURGITATION TECHNIQUE: Radiopharmaceutical was injected at peak stress test, and also at rest. SPECT images were obtained. SPECT myocardial perfusion images were displayed in short axis, horizontal long axis, and vertical long axis views. Gated images were reviewed using [employer] software. COMPARISON: None. CARDIAC STRESS: A standard Kenneth treadmill exercise tolerance test was performed by the patient under the supervision of an attending staff. The patient exercised for 4 minutes and 5 seconds; 5.1 METS. Functional aerobic impairment (LIZ) is -1%. Hemodynamic data: There is normal blood pressure and heart rate response to exercise stress. Patient achieved 101% of maximum predicted heart rate at peak exercise. Maximum blood pressure 185/85. Symptoms: Patient complained of chest pain at peak exercise that resolved immediately in recovery. EKG: Rest ECG sinus rhythm. Exercise ECG sinus tachycardia, 1-1.[address] segment depressions leads II, aVF, V5 and V6. Frequent PVCs noted. FINDINGS: Raw data: There is good myocardial labeling by radiotracer. No significant motion artifacts. Zgyl-bn-rxlzu ratio is 0.47 (normal is less than 0.38 for sestamibi tracer, and less than 0.50 for thallium tracer). Left ventricle function: Gated images demonstrate normal left ventricle wall thickening. No segmental wall motion abnormality. No transient ischemic dilation; TID is 0.81 (normal less than 1.3). The left ventricle resting end-diastolic volume is 114 mL. Left ventricle stress ejection fraction is 70%; normal values are above 45%. Myocardial perfusion: There is normal distribution of activity in the left and right ventricular myocardium. No fixed or reversible perfusion defects. IMPRESSION: Low risk study. No evidence of exercise-induced ischemia on SPECT imaging. Likely false positive exercise ECG. Frequent exercise-induced PVCs. Normal LV size and function. Normal hemodynamic response. Fair exercise capacity. Dictated by: Cristina Mejia D.O. on 08/28/2023 at 18:04 Approved by: Cirstina Mejia D.O. on 08/28/2023 at 18:08
--- NOTE | 2023-08-28 09:10 | DI.ECHO.S_ITS ---
[place] [facility]---------[facility] +---------+ : : [address] : : : : [id number] : : : : Phone: [phone] Echocardiogram Report + + :Name: DAVID DIAZ Study Date: 08/28/2023 Height: 67 in : :[facility] ReadingLocation: Weight: 175 lb : : Gender: Male BSA: 1.9 m2 : :: 1940 Age: 83 yrs BP: 169/78 mmHg: :Reason For Study: MITRAL VALVE REGURGITATION : :Ordering Physician: CAYETANO, : :VIDHYA Performed By: Brian Dozier : :Referring: VIDHYA MONTEIRO : + + Interpretation Summary The left ventricle is normal in size and wall thickness. The ejection fraction is estimated to be 55-60%. There has been no significant change since the previous exam. Diastolic parameters suggest a pseudonormalization pattern, consistent with probable elevated filling pressures. This is unchanged compared to the previous study. The right ventricle is normal in size and function. There is mild to moderate mitral regurgitation. Compared to the prior echo study, there has been no change in the severity of mitral regurgitation. There is moderate tricuspid regurgitation. Previously mild to moderate TR. The right ventricular systolic pressure is estimated to be at least 38 mmHg based on an estimated right atrial pressure of 3 mm Hg. Previously 36 mmHg. Procedure: A two-dimensional transthoracic echocardiogram with color flow and Doppler was performed. The study quality was technically adequate. Comparison is made with the echocardiogram of 08/19/2019. The patient was in normal sinus rhythm during the exam. The heart rate ranged between 50-67 bpm during the study. Left Ventricle: The left ventricle is normal in size and wall thickness. There is no thrombus. The ejection fraction is estimated to be 55-60%. There has been no significant change since the previous exam. Septal motion is consistent with conduction abnormality. Diastolic parameters suggest a pseudonormalization pattern, consistent with probable elevated filling pressures. This is unchanged compared to the previous study. Right Ventricle: The right ventricle is normal in size and function. Atria: The left atrium is moderately dilated. The left atrium has mildly increased in size since the prior echo exam. The right atrium is mildly dilated. The interatrial septum grossly appears intact with no obvious evidence for an atrial septal defect. Mitral Valve: There is mild mitral annular calcification. The mitral valve leaflets are mildly calcified. There is no mitral valve stenosis. There is mild to moderate mitral regurgitation. Compared to the prior echo study, there has been no change in the severity of mitral regurgitation. Aortic Valve: The aortic valve is trileaflet. There is mild aortic valve sclerosis. There is no aortic valve stenosis. No aortic regurgitation is present. Tricuspid Valve: The tricuspid valve is normal. There is no tricuspid stenosis. There is moderate tricuspid regurgitation. The right ventricular systolic pressure is estimated to be at least 38 mmHg based on an estimated right atrial pressure of 3 mm Hg. Pulmonic Valve: The pulmonic valve is not well visualized. There is no pulmonic valvular stenosis. There is trace pulmonic regurgitation. Great Vessels: The aortic root is normal size. The dimensions of the ascending aorta are normal. The IVC is of normal diameter and collapses greater than 50% with a sniff. This suggests a low right atrial pressure of 3 mm Hg. Pericardium/ Pleura There is no pericardial effusion. There is no pleural effusion. MMode/2D Measurements & Calculations LVIDd: 4.8 cm LVOT diam: 2.0 cm LVIDs: 3.3 cm Ao root diam: 3.1 cm FS: 31.6 % asc Aorta Diam: 3.6 cm IVSd: 1.1 cm LVPWd: 1.0 cm LV lorenzana. diameter/BSA (cm/m^2): 2.5 LV sys. diameter/BSA (cm/m^2): 1.7 LA A2 area: 21.5 cm2 RA long axis: 4.7 cm LA A4 area: 25.1 cm2 RA area: 15.4 cm2 LA length (vol): 6.0 cm RA vol: 42.8 ml LA vol: 75.9 ml RA : 22.4 ml/m2 LA vol index: 39.7 ml/m2 IVC diam: 1.2 cm RVD1 (basal): 3.9 cm RVD2 (mid): 3.5 cm TAPSE: 1.6 cm Doppler Measurements & Calculations Ao V2 max: 132.2 cm/sec LVOT Max Conor: 78.6 cm/sec Ao V2 mean: 96.0 cm/sec LV V1 max P.5 mmHg Ao max P.0 mmHg LV V1 VTI: 19.5 cm Ao mean P.0 mmHg YUMIKO(I,D): 1.7 cm2 Ao V2 VTI: 37.6 cm YUMIKO(V,D): 2.0 cm2 sev ratio: 0.52 YUMIKO indexed to BSA (cm^2/m^2): 0.89 MV E max conor: 105.3 cm/sec TR max conor: 296.5 cm/sec MV A max conor: 84.8 cm/sec TR max P.2 mmHg MV E/A: 1.2 PA V2 max: 94.6 cm/sec Med Peak E' Conor: 5.3 cm/sec PA V2 mean: 70.7 cm/sec E/E' med: 20.0 PA mean P.2 mmHg Lat Peak E' Conor: 8.7 cm/sec PA pr(Accel): 32.8 mmHg E/E' lat: 12.1 E/e' average: 16.0 MV dec time: 0.14 sec SV(LVOT): 64.2 ml Reading Physician:04:49 PM
== END ==
PROVIDERS: PCP Internal Medicine; Referring Provider Internal Medicine Cardiovascular Disease; Visit Provider Internal Medicine Cardiovascular Disease
DX: I08.3 Combined rheumatic disorders of mitral, aortic and tricuspid valves (principal); R94.39 Abnormal result of other cardiovascular function study; I49.3 Ventricular premature depolarization
CPT/HCPCS: 78452; 93017; 93306; A9502

== ENCOUNTER → 2024-03-22 07:12 | Outpatient (CLI) | payer OTHER, SELFPAY ==
[2024-03-22 08:36] LABS: Alanine Aminotransferase 26 IU/L (<50); Albumin 4.1 g/dL (3.5-5.0); Albumin Globulin Ratio 1.5 (1.0-2.8); Alkaline Phosphatase 58 U/L (38-126); Aspartate Aminotransferase 34 IU/L (17-59); BUN Creatinine Ratio 21.9 (6-22); Bilirubin Total 0.7 mg/dL (0.2-1.3); Blood Urea Nitrogen 21 mg/dL (9-20); Calcium 9.8 mg/dL (8.4-10.2); Carbon Dioxide 26 mmol/L (22-32); Chloride 105 mmol/L (98-107); Cholesterol 104 mg/dL (140-199); Estimated Glomerular Filt Rate > 60 mL/min (>60); Globulin 2.7 g/dL (1.7-4.1); Glucose 121 mg/dL (80-110); HDL Cholesterol 39 mg/dL (40-60); HEMOLYSIS < 15 (0-50); LDL Cholesterol Calculated 52 mg/dL (<100); Potassium 4.5 mmol/L (3.4-5.1); Sodium 139 mmol/L (137-145); Total Protein 6.8 g/dL (6.3-8.2); Triglycerides 66 mg/dL (35-150)
== END ==
PROVIDERS: PCP Internal Medicine; Referring Provider Internal Medicine Cardiovascular Disease; Visit Provider Internal Medicine Cardiovascular Disease
DX: I10 Essential (primary) hypertension (principal); E78.5 Hyperlipidemia, unspecified; I25.10 Atherosclerotic heart disease of native coronary artery without angina pectoris
CPT/HCPCS: 36415; 80053; 80061

== ENCOUNTER → 2024-10-16 07:32 | Outpatient (CLI) | payer OTHER, SELFPAY ==
[2024-10-16 08:58] LABS: Alanine Aminotransferase 28 IU/L (<50); Albumin 4.4 g/dL (3.5-5.0); Albumin Globulin Ratio 1.7 (1.0-2.8); Alkaline Phosphatase 50 U/L (38-126); Aspartate Aminotransferase 38 IU/L (17-59); BUN Creatinine Ratio 24.5 (6-22); Bilirubin Total 0.9 mg/dL (0.2-1.3); Blood Urea Nitrogen 24 mg/dL (9-20); Calcium 9.7 mg/dL (8.4-10.2); Carbon Dioxide 26 mmol/L (22-32); Chloride 104 mmol/L (98-107); Cholesterol 115 mg/dL (140-199); Estimated Glomerular Filt Rate > 60 mL/min (>60); Globulin 2.6 g/dL (1.7-4.1); Glucose 108 mg/dL (80-110); HDL Cholesterol 40 mg/dL (40-60); HEMOLYSIS < 15 (0-50); LDL Cholesterol Calculated 60 mg/dL (<100); Potassium 4.6 mmol/L (3.4-5.1); Sodium 140 mmol/L (137-145); Triglycerides 75 mg/dL (35-150)
== END ==
PROVIDERS: PCP Internal Medicine; Referring Provider Internal Medicine Cardiovascular Disease; Visit Provider Internal Medicine Cardiovascular Disease
DX: I10 Essential (primary) hypertension (principal); I25.10 Atherosclerotic heart disease of native coronary artery without angina pectoris; I49.3 Ventricular premature depolarization
CPT/HCPCS: 36415; 80053; 80061

== ENCOUNTER → 2025-05-24 07:07 | Outpatient (CLI) | payer OTHER, SELFPAY ==
[2025-05-24 09:14] LABS: Alanine Aminotransferase 26 IU/L (<50); Albumin 4.4 g/dL (3.5-5.0); Albumin Globulin Ratio 1.5 (1.0-2.8); Alkaline Phosphatase 51 U/L (38-126); Blood Urea Nitrogen 20 mg/dL (9-20); Calcium 9.6 mg/dL (8.4-10.2); Carbon Dioxide 26 mmol/L (22-32); Chloride 105 mmol/L (98-107); Cholesterol 106 mg/dL (140-199); Estimated Glomerular Filt Rate > 60 mL/min (>60); Globulin 3.0 g/dL (1.7-4.1); Glucose 116 mg/dL (70-99); HDL Cholesterol 36 mg/dL (40-60); HEMOLYSIS < 15 (0-50); Potassium 4.8 mmol/L (3.4-5.1); Sodium 141 mmol/L (137-145); Total Protein 7.4 g/dL (6.3-8.2); Triglycerides 70 mg/dL (35-150)
[2025-05-24 09:48] LABS: TSH w/ Reflex to FT4 1.95 uIU/mL (0.47-4.68)
[2025-05-25 22:36] LABS: Lead, Blood < 1.0 ug/dL (0.0-3.4); Mercury, Blood < 1.0 ug/L (0.0-14.9)
== END ==
PROVIDERS: PCP Internal Medicine; Referring Provider Internal Medicine; Visit Provider Internal Medicine
DX: I10 Essential (primary) hypertension (principal); F09 Unspecified mental disorder due to known physiological condition; E78.2 Mixed hyperlipidemia
CPT/HCPCS: 36415; 80053; 80061; 82175; 83090; 83655; 83825; 84443

== ENCOUNTER → 2025-06-08 13:10 | Outpatient (CLI) | payer OTHER, SELFPAY ==
--- NOTE | 2025-06-08 13:11 | DI.MRI.S_ITS ---
PROCEDURE: MR HEAD/BRAIN WO CON INDICATIONS: dementia TECHNIQUE: Non-contrast axial T1 spin echo, axial T2 fast spin echo, sagittal and axial FLAIR, coronal T2 fast spin echo, axial gradient echo, axial diffusion and ADC through the brain. COMPARISON: None. FINDINGS: Image quality: Excellent. CSF spaces: Ventricles appear symmetric in size and shape. Basal cisterns are patent. No extra-axial fluid collections. Brain: No intracranial bleeds or mass effects. There is cerebral volume loss for age. There are periventricular and deep white matter chronic small vessel ischemic changes. Brainstem appears normal. Diffusion-weighted images show no acute infarct. No chronic ischemic insults. Normal intravascular flow voids are present. Skull and face: Calvarial bone marrow is normal in signal. Bilateral lens replacements. Otherwise, the orbits are unremarkable. Sinuses: Sinuses and mastoids are clear. IMPRESSION: Age-related global volume loss and chronic microvascular ischemic changes are present. No acute intracranial abnormalities. Approved by: Matthew Coreas M.D. on 06/08/2025 at 15:37
== END ==
LOC: MRI 13:10
PROVIDERS: PCP Internal Medicine; Referring Provider Internal Medicine; Visit Provider Internal Medicine
DX: F03.90 Unspecified dementia, unspecified severity, without behavioral disturbance, psychotic disturbance, mood disturbance, and anxiety (principal)
CPT/HCPCS: 70551